=== PATIENT | male | born 1965 | race Caucasian/White ===

== ENCOUNTER 2018-10-23 05:39 | Inpatient (IN) | payer OTHER ==
[2018-10-23] MEDS ORDERED: GABAPENTIN 300 MG CAP PO ONE (06:08)
[2018-10-23] MEDS ORDERED: ACETAMINOPHEN 500 MG TAB PO ONE (06:08)
[2018-10-23] MEDS ORDERED: ceFAZolin 2 GM/DEXTROSE 100 ML IV ONE (06:08)
[2018-10-23] MEDS ORDERED: LR 1,000 ML IV ONE (06:10)
--- NOTE | 2018-10-23 06:41 | PDHPUP ---
History & Physical Update H&P update statement: This history and physical update is based on an assessment of the patient which was completed after admission or registration (within 24 hours), but prior to the surgery/procedure. H&P update: H&P reviewed & patient examined, no change in patient's condition since H&P completed
[2018-10-23] MEDS ORDERED: CHLORHEXIDINE GLUC HIBICLENS 118 ML BTL TP ONE (06:47)
[2018-10-23] MEDS ORDERED: THROMBIN (BOVINE) 20,000 UNIT VIAL TP ONE (06:47)
[2018-10-23] MEDS ORDERED: BUPIVACAINE 0.25% 30 ML SDV ONE ×2 (06:47→07:50)
[2018-10-23] MEDS ORDERED: EPINEPHrine 1 MG/ML INJ ONE (06:47)
[2018-10-23] MEDS ORDERED: BACITRACIN 50,000 UNITS/10 ML SYR IRR ONE (06:48)
[2018-10-23] MEDS ORDERED: MIDAZOLAM 2 MG/2 ML VIAL IVP ONE (06:58)
--- NOTE | 2018-10-23 07:01 | PDANEPAE ---
ANE History of Present Illness 52 year old with back pain ANE Past Medical History - Cardiovascular History Hx Hypertension: No Hx Arrhythmias: No Hx Chest Pain: No Hx Coronary Artery / Peripheral Vascular Disease: No Hx CHF / Valvular Disease: No Hx Palpitations: No - Pulmonary History Hx COPD: No Hx Asthma/Reactive Airway Disease: No Hx Recent Upper Respiratory Infection: No Hx Oxygen in Use at Home: No Hx Sleep Apnea: No Sleep Apnea Screening Result - Last Documented: Negative - Neurologic History Hx Cerebrovascular Accident: No Hx Seizures: No Hx Dementia: No - Endocrine History Hx Diabetes: No - Renal History Hx Renal Disorders: No - Liver History Hx Hepatic Disorders: No - Neurological & Psychiatric Hx Hx Neurological and Psychiatric Disorders: Yes Neurological / Psychiatric History Comment: slight depression - Cancer History Hx Cancer: No - Congenital Disorder History Hx Congenital Disorders: No - GI History Hx Gastrointestinal Disorders: No - Other Health History Other Health History: none - Chronic Pain History Chronic Pain: Yes (low back and leg pain) - Surgical History Prior Surgeries: bilateral knee scopes. left ankle. sinus surgery x2 ANE Review of Systems Review of systems is: negative Review of Systems: - Exercise capacity METS (RN): 4 METS ANE Patient History - Allergies Allergies/Adverse Reactions: No Known Allergies Allergy (Verified 10/20/18 10:28) - Home Medications Home Medications: Escitalopram Oxalate [Lexapro] 20 mg PO DAILY 10/13/18 [Last Taken 10/23/18 04: 00] - NPO status NPO Since - Liquids (Date): 10/23/18 NPO Since - Liquids (Time): 04:00 NPO Since - Solids (Date): 10/22/18 NPO Since - Solids (Time): 22:00 - Smoking Hx Smoking Status: Never smoked - Family Anes Hx Family Hx Anesthesia Complications: none ANE Labs/Vital Signs - Vital Signs Blood Pressure: 121/89 Heart Rate: 68 Respiratory Rate: 18 O2 Sat (%): 96 Height: 187.96 cm Weight: 90.718 kg ANE Physical Exam - Airway Neck exam: FROM Mallampati Score: Class 1 Mouth exam: normal dental/mouth exam - Pulmonary Pulmonary: no respiratory distress - Cardiovascular Cardiovascular: regular rate and rhythym - ASA Status ASA Status: I ANE Anesthesia Plan Anesthesia Plan: general endotracheal anesthesia
[2018-10-23 07:11] LABS: PLATELET COUNT 230 10^3/uL (150-400)
[2018-10-23] MEDS ORDERED: fentaNYL 100 MCG/2 ML INJ ONE ×3 (07:12→13:01)
[2018-10-23] MEDS ORDERED: LACTULOSE 20 GM/30 ML UDCUP PO PRN (07:12)
[2018-10-23] MEDS ORDERED: ONDANSETRON DISINTEGRATING 4 MG TAB PO PRN (07:12)
[2018-10-23] MEDS ORDERED: BISACODYL 10 MG SUPP PR PRN (07:12)
[2018-10-23] MEDS ORDERED: HYDROmorphONE/DILAUDID 1 MG/ML INJ IVP PRN (07:12)
[2018-10-23] MEDS ORDERED: MAGNESIUM HYDROXIDE 30 ML UDCUP PO PRN (07:12)
[2018-10-23] MEDS ORDERED: NALOXONE HCL 0.4 MG/ML INJ IVP PRN ×2 (07:12→12:48)
[2018-10-23] MEDS ORDERED: morphINE PCA 30 MG/30 ML PCA IV PRN (07:12)
[2018-10-23] MEDS ORDERED: POLYETHYLENE GLYCOL 3350 17 GM PKT PO PRN (07:12)
[2018-10-23] MEDS ORDERED: diphenhydrAMINE 25 MG CAP PO PRN (07:12)
[2018-10-23] MEDS ORDERED: ONDANSETRON 4 MG/2 ML VIAL IVP PRN ×2 (07:12→12:48)
[2018-10-23] MEDS ORDERED: KETAMINE 500 MG/10 ML VIAL ONE (07:13)
[2018-10-23] MEDS ORDERED: PROPOFOL 200 MG/20 ML VIAL ONE (07:13)
[2018-10-23] MEDS ORDERED: PROPOFOL/EMULSION 500 MG/50 ML BOTTLE IV ONE ×3 (07:13→11:07)
[2018-10-23] MEDS ORDERED: REMIFENTANIL HCL 1 MG VIAL ONE ×3 (07:13→11:07)
[2018-10-23] MEDS ORDERED: NS 1,000 ML IV SCH (07:15)
--- NOTE | 2018-10-23 09:01 | PDMN ---
Medical Necessity Medical necessity: Pt meets inpt criteria per MD order and [facility] [place] [facility], Lumbar Fusion, IP only list. 52 y/o w/spondylolisthesis admitted for L4/5, L5/S1 TLIF and post-op care.
[2018-10-23] MEDS ORDERED: HYDROmorphONE/DILAUDID 2 MG/ML INJ ONE (12:11)
[2018-10-23] MEDS ORDERED: HYDROmorphONE/DILAUDID 2 MG/ML INJ IVP PRN (12:48)
[2018-10-23] MEDS ORDERED: PROMETHAZINE HCL 25 MG/ML INJ IVP PRN (12:48)
--- NOTE | 2018-10-23 12:48 | POSTANESTH ---
Post Anesthetic Evaluation Cardiovascular Status: Normal, Stable, Tx Over/Under Hydration Level of Consciousness/Mental Status: Can Participate in Eval, Moderately Sleepy Pain Control: Adequate, Prn Tx Ordered Nausea/Vomiting Control: Adequate, Prn Tx Ordered Complications Possibly Related to Anesthesia: None Noted
--- NOTE | 2018-10-23 12:49 | SOAPPROG ---
SOAP Progress Note Assessment/Plan: Post Op Visit: S: Awake and alert. NAD. Pt with expected lower back pain O: AFVSS/PERRLA/EOMI no droop CN 2-12 grossly intact +lt touch 5/5 BUE/BLE = CDI NERISSA in place A/P: 52 yo male that is s/p TLIF L4/5 and L5/S1 -orders in place -call with any questions or concerns -brace when out of bed -no B/T/L -post op xrays in am -pt understands and agrees -pt seen by Dr Walters Objective: Vital Signs Temp Pulse Resp BP Pulse Ox 36.5 C 68 18 121/89 H 96 10/23/18 06:51 10/23/18 07:00 10/23/18 07:00 10/23/18 07:00 10/23/18 07:00 Laboratory Results 10/23/18 06:52 ICD10 Worksheet Patient Problems: Problems Problem Status Onset Lumbar radicular pain Acute Lumbar stenosis Acute - ICD10 Problem Qualifiers (1) Lumbar stenosis (2) Lumbar radicular pain
--- NOTE | 2018-10-23 12:51 | POSTOPPROG ---
Post Op Note Date of Operation: 10/23/18 Surgeon: Willie Walters Air Brake Tester: HEMA hSarma Anesthesiologist: MD Constantine Anesthesia: GET(General Endotracheal), Local (Specify) Pre-op Diagnosis: lumbar stenosis L4-S1 Post-op Diagnosis: lumbar stenosis L4-S1 Indication: BLE pain, LBP Procedure: TLIF L4/5 and L5/S1 Findings: see op report Inf/Abcess present in the surg proc area at time of surgery?: No Depth: Deep Incisional (Fascial) EBL: 100-500 Total fluids administered: see anesthesia record Complications: none Drains: Rojelio Burns
[2018-10-23] MEDS ORDERED: DIAZEPAM 5 MG/ML 1 ML SYR IVP PRN (12:53)
[2018-10-23] MEDS ORDERED: DIAZEPAM 5 MG/ML 1 ML SYR ONE (13:03)
[2018-10-23] MEDS: fentaNYL 100 MCG/2 ML INJ IVP PRN ×2 (13:03→13:21)
--- NOTE | 2018-10-23 13:54 | GOP ---
[f rep st] OPERATIVE REPORT DATE OF OPERATION: 10/23/2018 SURGEON: Eduar Walters MD NEUROSURGEON: Eduar Walters MD LOG BRANDER: Miller Sharma PA-C. PREOPERATIVE DIAGNOSIS: Spondylosis with spondylolisthesis and severe facet arthropathy L4-5, severe stenosis at L4-5, severe bilateral recess stenosis with foraminal stenosis at L5-S1, free-fragment d isk herniation right L5-S1, broad prolapse of the L5-S1 disk with severe left lateral and foraminal s tenosis L5-S1 without spondylolisthesis. POSTOPERATIVE DIAGNOSIS: Spondylosis with spondylolisthesis and severe facet arthropathy L4-5, sever e stenosis at L4-5, severe bilateral recess stenosis with foraminal stenosis at L5-S1, free-fragment disk herniation right L5-S1, broad prolapse of the L5-S1 disk with severe left lateral and foraminal stenosis L5-S1 without spondylolisthesis. PROCEDURE PERFORMED: Posterior lateral and intervertebral arthrodesis with bilateral decompressions L4-5, L5-S1 (89188, [id number]), posterior segmental instrumentation L4, L5, S1, same incision bone graft harvest, placement of biomechanical intervertebral device L4-5, L5-S1, spinal stereotaxis, microscope . FINDINGS: ESTIMATED BLOOD LOSS: 200 cc. INDICATIONS: The patient has a long history of problems in his lumbar spine with bilateral lumbosacr al radiculopathy, left greater than right, chronically with frequent bouts of just terrible axial low back pain requiring numerous Medrol dose packs over the years to help manage his pain. When he more recently developed an acute right-sided radicular pain, and was found on his MRI to have a soft disk herniation at L5-S1 that I do not believe was appreciated by the radiologist, but it was apparent niraj th on the axial and sagittal images. He had a more chronic prolapse of the L5-S1 disk and severe lef t lateral recess stenosis at L5-S1, but there was no subluxation at L5-S1. At L4-5, he had subluxati on and severe central and bilateral recess stenosis. I discussed this with him and we discussed even doing a simple right-sided microdiskectomy at L5-S1 to help only the acute problems, but he has a lo ng history of ongoing chronic problems in the back with bilateral symptoms, not just the new right-si ded symptoms. He was experiencing some muscle atrophy and weakness. He saw numerous surgeons and al l of them suggested that he consider 2-level fusion, but there were numerous opinions as how to achie ve this, and I recommended the posterior approach because I felt it was safest, although it does lead to higher perioperative discomfort. I thought that was the safest approach and would allow us to di rectly address the free fragment disk herniation on the right at L5-S1. He had spondylolisthesis at L4-5 and the intention was to do a fusion at that level, but at L5-S1, I also suggested a fusion ellen use we are going to need to do bilateral very wide facetectomies particular on the left-hand side whe re I would need to remove more than 50% of the left L5-S1 facet joint to decompress both the neural f oramen and the lateral recess. The lateral recess at L5-S1 was exceptionally deep and decompressed f lush with the S1 pedicle and to thoroughly decompress the left S1 nerve root, would require destabili zing the spine by removal of too much of the facet, a fusion was suggested here. He also had chronic problems at the L5-S1 level and this was felt the best way to address those, but I discussed with th e patient on multiple occasions, the risks of the surgery, including the risks of very substantial pe rioperative discomfort, particularly given his very muscular back. He understood that there would be a lot of discomfort associated with the surgery. We discussed the risk of screw and hardware malpos ition, nerve injury, spinal fluid leak, and possible need for revision surgery down the road. He kne w there was risk of pseudoarthrosis at the index levels, the levels that are going to be fused today. He also knew that down the road, he may require additional fusion at L3-4. We discussed many alter natives of fusion, including the simple diskectomy at L5-S1, but the chronic problems in his back wer e also overwhelming and really very significant disruptor to his quality of life and he did want to h ave these addressed as well. He knew there was a chance surgery would fail to give him relief and th at he may continue to have pain following surgery. He accepted these risks and did want to proceed. He knew the risk of this was quite low and I thought [facility]. DESCRIPTION OF PROCEDURE: Patient was taken to the operating room, placed in supine position. Gener al anesthesia was begun. A Paulino catheter was placed by the nursing staff. He was flipped prone ont o the Rojelio table. Care was taken to pad all points of contact. His back was sterilely prepped an d draped in usual fashion. A localizing x-ray was taken. We made a midline incision it was 8 cm in length. The subcutaneous ti ssue was dissected using Bovie cautery down through the fascia and a subperiosteal dissection was mad e down the inferior lamina of L3. The lamina of L4, L5, and S1 was exposed. A self-retaining retrac tor was placed. We denuded the bilateral hypertrophic facets at L4-5 after shooting a localizing x-r ay. We also denuded the bilateral L5-S1 facet joints, but these were more normal in their size. We then decorticated the transverse process at L4, L5 and the sacral ala. We then took the match stick and marked entry holes for our pedicle screws. We attached the Stealth reference frame, performed an O-arm spin, and using frameless Stealth stereotaxy, we placed pedicle screws bilaterally at L4, L5, and S1. An O-arm spin was made. The screws were all in excellent position. There was no malpositio n of any of the screws and they stimulated at acceptable levels. We took a 70 mm javier and placed it d own over the tulips and distracted the slightly between L4-5 and 5-1, and we got reduction of the spo ndylolisthesis. We, in fact, over-distracted initially in this case to allow us to do our decompress ion and then we compressed later in the case to try to restore lordosis at those segments. We then c arefully removed all the soft tissue of the bone at L4-5 and the sacrum. We then harvested the L5 spinous process and the inferior L4 spinous process for autologous grafting purposes. It was interesting, the interspinous ligament at L4-5 was extremely lax and buckled consis tent with the instability that he was experiencing at that level. We did not appreciate this at L5-S 1. We then under the operating microscope drilled bilateral decompressions at L4-5 and L5-S1. We co mpletely removed the L5 lamina, began decompressing centrally at L5-S1, then working our way up along the pedicle of L5 into the lateral recess at L4-5. This was the tightest area of the spinal canal o n the right at L4-5 and we did see an occasional burst firing of the L5 root on the right-hand side a s we decompressed this. There was no evidence of any train firing on the right-hand side, but this w as the tightest area of the spinal canal. We decompressed widely flush with the L5 pedicle, but we p reserved the right L4-5 facet joint. We decompressed the neural foramen as well for the exiting L4 n erve root. We then worked our way from the right side over the left side where we completely removed the left L4-5 facet joint, decompressing the exiting L4 nerve root on the left side, and then worked our way flush with the L5 pedicle inferiorly toward the L5-S1 level following the L5 root into its n eural foramen on the left side. We worked our way inferiorly and decompressed the L5-S1 foramen on t he left side by removing the facet joint completely. This also allowed us to radically decompress th e lateral recess of the spinal canal where the S1 root was compressed by a chronic prolapse anulus at L5-S1. We got a great decompression. We then worked our way across to the right-hand side at L5-S1 where we decompressed the right S1 nerve root flush with the pedicle and then followed this up into the neural foramen on the right at L5-S1, and then worked our way back up to the L5 pedicle. We got a great decompression. I then swept the right S1 nerve root medially, and underneath the nerve root, there was actually a relatively large free fragment of disk coming out of the L5-S1 disk itself. It was adjacent to the pedicle and at the level the disk space, and we spent considerable time dissecti ng on the right-hand side and removing this free fragment. We did not open the anulus of the disk on the right, but there was a defect in the right paracentral anulus at L5-S1. The S1 root was totally decompressed on the right-hand side. We then turned our attention to the disk spaces from the left-hand side at L4-5, L5-S1. We began at L5-S1 where we swept the S1 nerve root medially, incised the disk and removed the disk and the cartil aginous endplates. It was a large beefy disk and it took considerable time to remove it. We did get very nice removal of disk and roughened the subchondral bone to create arthrodesis at that level, an d then, we went up to the L4-5 level where this disk was even taller than the L5-S1 disk. We swept t he L5 nerve root medially, incised the L4-5 anulus, removed the anulus and the cartilaginous endplate s of the disk, and we roughened the subchondral bone to create arthrodesis at L4-5. We placed a BMP and bone autograft into the 4-5 disk and placed bone autograft and BMP into the 5-1 disk. We sized b oth with the Medtronic spacer and chose an 8 x 28 mm device at L5-S1 and chose a 10 x 28 mm expandabl e device for L4-5. We inserted these into the 4-5 and 5-1 disk spaces respectively, and then under f luoroscopic guidance, we expanded them, getting a lot of anterior lift at L4-5, 5-1. We shot x-rays. We confirmed the position of the devices. They were in very good position. We then relaxed our di straction both at L4 and S1 and compressed between L4 and L5 and between L5 and S1 bilaterally. We t hen locked the rods down in place. This created some additional lumbar lordosis between L4-5 and 5-1 and reduced our over-distraction that we used for decompression itself. We decorticated all the rem aining posterior lateral bone bilaterally and placed bone autograft and BMP posterolaterally bilatera lly. We achieved excellent bilateral decompressions L4-5 and 5-1, and I placed a subfascial drain. We irrigated throughout the surgery with large amounts of antibiotic saline. We closed the incision in multiple layers using Vicryl sutures and running PDS was placed in the skin itself. The patient w as reversed from anesthesia, extubated, and transferred to recovery room in stable condition. There were no complications. COMPLICATIONS: None. INSTRUMENTATION USED: A Medtronic 5.5 mm system with titanium rods, 70 mm rods bilaterally. We used six 6.5 x 45 mm screws and we used a 10 x 28 mm Elevate cage at the L4-5 level and an 8 x 28 mm Elev ate cage at L5-S1. We used a 3.5 mg of bone morphogenic protein on the surgery. /[id number]/MODL
[2018-10-23] MEDS ORDERED: ceFAZolin 2 GM/DEXTROSE 100 ML IV SCH (14:00)
[2018-10-23] MEDS: FAMOTIDINE 20 MG TAB PO SCH ×2 (14:51→20:23)
[2018-10-23] MEDS: ESCITALOPRAM OXALATE 10 MG TAB PO SCH (14:51)
[2018-10-23] MEDS: SENNOSIDES/DOCUSATE SODIUM TAB PO SCH ×2 (14:51→20:23)
[2018-10-23] MEDS: ceFAZolin 2 GM/DEXTROSE 100 ML IV SCH ×2 (15:03→23:41)
[2018-10-23] MEDS: GABAPENTIN 300 MG CAP PO SCH ×2 (15:03→22:07)
[2018-10-23] MEDS: ACETAMINOPHEN 500 MG TAB PO SCH ×2 (15:03→22:06)
[2018-10-23] MEDS: oxyCODONE IR 5 MG TAB PO PRN (18:49)
[2018-10-23] MEDS: METHOCARBAMOL 750 MG TAB PO PRN (20:41)
[2018-10-24] MEDS: oxyCODONE IR 5 MG TAB PO PRN (01:56)
[2018-10-24] MEDS: METHOCARBAMOL 750 MG TAB PO PRN ×2 (05:00→11:39)
[2018-10-24 05:42] LABS: PLATELET COUNT 188 10^3/uL (150-400)
[2018-10-24] MEDS: GABAPENTIN 300 MG CAP PO SCH ×3 (06:37→21:10)
[2018-10-24] MEDS: ACETAMINOPHEN 500 MG TAB PO SCH ×3 (06:43→22:17)
--- NOTE | 2018-10-24 07:23 | NEUSURGPN ---
Date of Surgery: 10/23/18 Post Op Day: 1 Assessment/Plan: Assessment: 52 yo male that is s/p TLIF L4/5 and L5/S1 POD #1 Plan: -s/p lumbar surgery: pt with expected lower back pain -continue with pain management -NA this am was 127-will follow with repeat labs-could be dilutional -orders in place -call with any questions or concerns -brace when out of bed -no B/T/L -post op xrays in am -pt understands and agrees -pt seen by Dr Walters -continue with NERISSA Subjective: Awake and alert. NAD. Eating/drinking and voiding. No f/c/n/v/d. Objective: AFVSS/PERRLA/EOMI no droop CN 2-12 grossly intact +lt touch 5/5 BUE/BLE = CDI NERISSA in place Neuro Check Frequency: per routine Urinary Catheter in Place: No - Physician Discussed Patient with : Romeo Patient Seen by : Romeo Neurosurgery Physical Exam - Vitals, I&O, Labs I and O 10/23/18 10/24/18 10/25/18 05:59 05:59 05:59 Intake Total 5200 Output Total 5 Balance 3145 Weight 90.718 kg Intake: Oral (ml) 3800 IV Intake (ml) 1300 IV Infused (ml) 100 ceFAZolin 2 GM/DEXTROSE 100 100 ml @ 200 mls/hr IV Q8H [facility] Rx#:[id number] Output: Urine (ml) 1150 Urinal 1150 Estimated Blood Loss (ml) 350 Emesis (ml) 0 NERISSA Drain Output (ml) 555 #1 Back 555 Other: Intake Quantity Yes Sufficient Number of Voids Urinal 1 Bladder Scan Volume (ml) Urinal 240 Vital Signs Temp Pulse Resp BP Pulse Ox 36.8 C 63 15 100/60 92 10/24/18 04:00 10/24/18 04:00 10/24/18 04:00 10/24/18 04:00 10/24/18 04:00 Laboratory Results 10/24/18 04:47 10/24/18 04:47 ICD10 Worksheet Patient Problems: Problems Problem Status Onset Lumbar radicular pain Acute Lumbar stenosis Acute - ICD10 Problem Qualifiers (1) Lumbar stenosis (2) Lumbar radicular pain
[2018-10-24] MEDS: FAMOTIDINE 20 MG TAB PO SCH ×2 (08:16→21:09)
[2018-10-24] MEDS: HYDROCODONE/APAP 5/325 TAB PO PRN ×3 (08:16→21:13)
[2018-10-24] MEDS: SENNOSIDES/DOCUSATE SODIUM TAB PO SCH ×2 (08:20→21:09)
[2018-10-24] MEDS: ESCITALOPRAM OXALATE 10 MG TAB PO SCH ×2 (08:20→09:49)
--- NOTE | 2018-10-24 15:37 | ASMTCMCOM ---
CM Note CM Note Notes: Pt had planned surgery, resides with spouse. PT rec outpatient/home, OT rec home. Anticipate pt will d/c when medically stable with family support. No CM d/c needs identified. CM available for changes/needs. Date Signed: 10/24/2018 03:37 PM Electronically Signed By:BERENICE Madrid
[2018-10-25] MEDS: HYDROCODONE/APAP 5/325 TAB PO PRN ×3 (02:07→12:51)
[2018-10-25] MEDS: GABAPENTIN 300 MG CAP PO SCH (06:00)
--- NOTE | 2018-10-25 07:11 | NEUSURGPN ---
Date of Surgery: 10/24/18 Post Op Day: 1 Assessment/Plan: Assessment: 52 yo male that is s/p TLIF L4/5 and L5/S1 POD #2 Plan: -s/p lumbar surgery: pt with expected lower back pain that is better -continue with pain management-pain well controlled with [place]/Robaxin and Gabapentin -NA yesterday am was 127 and is now 139 -orders in place -call with any questions or concerns -brace when out of bed -no B/T/L -post op xrays look good-reviewed with Dr Walters and with Pt/ -pt understands and agrees -pt seen by Dr Walters -remove NERISSA this am -plan for dc later today Subjective: Awake and alert. Pt with expected lower back pain that is better. Buttock pain that he had immediately post op is "75% better". No saab/neck/chest/abd or gu complaints. No f/c/n/v/d. Objective: AFVSS/PERRLA/EOMI no droop CN 2-12 grossly intact +lt touch 5/5 BUE/BLE = CDI NERISSA in place Neuro Check Frequency: per routine Urinary Catheter in Place: No - Physician Discussed Patient with : Romeo Patient Seen by : Romeo Neurosurgery Physical Exam - Vitals, I&O, Labs I and O 10/24/18 10/25/18 10/26/18 05:59 05:59 05:59 Intake Total 5200 640 Output Total 2055 1370 Balance 3145 -730 Weight 90.718 kg Intake: Oral (ml) 3800 640 IV Intake (ml) 1300 IV Infused (ml) 100 ceFAZolin 2 GM/DEXTROSE 100 100 ml @ 200 mls/hr IV Q8H [facility] Rx#:[id number] Output: Urine (ml) 1150 1225 Toilet 550 Urinal 1150 675 Estimated Blood Loss (ml) 350 Emesis (ml) 0 NERISSA Drain Output (ml) 555 145 #1 Back 555 145 Other: Intake Quantity Yes Sufficient Number of Voids Toilet 2 Urinal 1 Bladder Scan Volume (ml) Urinal 240 Vital Signs Temp Pulse Resp BP Pulse Ox 36.4 C 68 16 115/62 91 L 10/25/18 02:11 10/25/18 02:11 10/25/18 02:11 10/25/18 02:11 10/25/18 02:11 Laboratory Results 10/24/18 04:47 10/25/18 04:29 ICD10 Worksheet Patient Problems: Problems Problem Status Onset Lumbar radicular pain Acute Lumbar stenosis Acute - ICD10 Problem Qualifiers (1) Lumbar stenosis (2) Lumbar radicular pain
[2018-10-25] MEDS: ACETAMINOPHEN 500 MG TAB PO SCH (07:21)
[2018-10-25 07:27] VITALS: BP 101/65
[2018-10-25] MEDS: METHOCARBAMOL 750 MG TAB PO PRN (08:42)
[2018-10-25] MEDS: FAMOTIDINE 20 MG TAB PO SCH (08:42)
[2018-10-25] MEDS: SENNOSIDES/DOCUSATE SODIUM TAB PO SCH (08:42)
[2018-10-25] MEDS: ESCITALOPRAM OXALATE 10 MG TAB PO SCH (08:44)
--- NOTE | 2018-10-25 14:11 | ASMTLACE ---
MICKIEE Length of stay for Answers: 3 days current admission Acuity / Level of Answers: Yes Care: Did the patient have an inpatient admission? Comorbidities - select Answers: Opioid dependence all that apply / Chronic pain # of Emergency department Answers: 0 visits in the last 6 months Social determinants Answers: Mental health diagnosis (anxiety, depression, pers onality disorders, etc.) Score: 13 Date Signed: 10/25/2018 02:10 PM Electronically Signed By:BERENICE Madrid
--- NOTE | 2018-10-25 14:12 | ASMTCMCOM ---
CM Note CM Note Notes: Pt medically stable for d/c, no CM d/c needs identified. Date Signed: 10/25/2018 02:11 PM Electronically Signed By:BERENICE Madrid
[2018-10-26] MEDS ORDERED: ENOXAPARIN 40 MG/0.4 ML SYR SC SCH (09:00)
--- NOTE | 2018-10-31 06:30 | GDS ---
[f rep st] DISCHARGE SUMMARY PRIMARY DIAGNOSIS: Spondylosis with spondylolisthesis, severe facet arthropathy L4-5, severe stenosi s at L4-5, severe bilateral recess stenosis with foraminal stenosis at L5-S1, free fragment disk patrizia iation on the right L5-S1, broad-based prolapse at L5-S1 with severe left lateral and foraminal steno sis at L5-S1 without spondylolisthesis. OPERATION/PROCEDURES: Posterolateral intervertebral arthrodesis and bilateral decompression L4-5, L5 -S1 with posterior segmental instrumentation at L4, L5, and S1 with same incision bone graft harvest, placement of biomechanical intervertebral device at L4-5, L5-S1, that occurred with Dr. Rafy Walters a [facility] on 10/23/2018. HOSPITAL COURSE: This is a patient who has a long history of problems in his lumbar spine with bilat eral lumbosacral radiculopathy, left greater than right, chronically with frequent bouts of just terr ible axial low back pain, requiring numerous Medrol Dosepak over the years to help manage his pain. He, more recently, developed an acute right-sided radicular pain, and was found on MRI to have a soft disk herniation at L5-S1 that Dr. Walters did not believe was appreciated by the radiologist, but thi s was apparent both on axial and sagittal images. He had a more chronic prolapse at L5-S1 as well wi th left lateral recess stenosis at L5-S1, but there was no subluxation of L5-S1. At L4-5, he had sub luxation and severe central and bilateral recess stenosis. Dr. Walters went over the images in detail as a preoperative appointment. The patient understood the risks associated with this, and elected t o proceed. He underwent the above-mentioned procedure. He was seen on a daily basis. Postoperative day #1, he had lumbar spine x-rays on 10/24/2018, which showed a fusion from L4-S1 with good alignme nt. There was no obvious complications or loosening. The patient was seen on a daily basis. On , he met criteria for discharge, and was discharged home. He did have some expected lower agus k pain, but this was better, even over the few days he was in the hospital. He did have a low sodium initially that was felt to be related to delusional changes. The second recheck of the sodium was 1 39 and was within normal limits. He was instructed no bending, twisting or lifting. His postoperati ve x-rays were reviewed with the patient, his , as well as Dr. Walters. NERISSA was placed in operativ eduar and removed, and plan was for discharge on 10/25/2018. The patient understood this, and was disc harged home. Please see med rec form. CONSULTS: None. COMPLICATIONS: None. DISCHARGE CONDITION: Stable and improved. DISCHARGE INSTRUCTIONS: Standard discharge instructions given to the patient following instrumented lumbar fusion. We talked about worsening symptoms, new pain, weakness, numbness, tingling, loss of b owel or bladder control, problems with gait or balance. He will follow up with us in the office for a recheck in 2 weeks, then likely at 2 months, 3-6 months, 9 months, a year, a year and a half, and 2 years with x-rays and clinically appropriate. All questions and concerns answered. /[id number]/MODL
--- NOTE | 2018-10-31 06:35 | GDS ---
[f rep st] DISCHARGE SUMMARY This will serve as an order for discharge effective 10/25/2018, at 12:57. Discharged to home with [facility]i [facility] self-care. /[id number]/MODL
== END 2018-10-25 12:57 | disposition home or self-care (01) | DRG 455 ==
LOC: F3N 05:39
PROVIDERS: ADMIT Neurological Surgery; ATTEND Neurological Surgery
DX: M48.062 Spinal stenosis, lumbar region with neurogenic claudication (principal); M43.16 Spondylolisthesis, lumbar region; M51.27 Other intervertebral disc displacement, lumbosacral region; M51.36 Other intervertebral disc degeneration, lumbar region; M47.26 Other spondylosis with radiculopathy, lumbar region
CPT/HCPCS: 97116-GP; 97161-GP; 97165-GO; 97535-GO; C1713; J0171; J0690; J1170; J2250; J2704; J3010; J3360